=== PATIENT | male | born 2000 | race Caucasian/White ===

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

== ENCOUNTER 2022-03-31 17:57 | Emergency (ER) | payer BC, OTHER ==
[2022-03-31] MEDS ORDERED: Diphtheria,Pertussis(Acell),Tetanus Vaccine 0.5 ML Syringe IM ONE (18:26)
[2022-03-31 19:35] VITALS: BP 125/50; PULSE 92
== END 2022-03-31 19:34 | disposition home or self-care (01) ==
LOC: MW.ED 17:57
DX: S62.357A Nondisplaced fracture of shaft of fifth metacarpal bone, left hand, initial encounter for closed fracture (principal); S62.647A Nondisplaced fracture of proximal phalanx of left little finger, initial encounter for closed fracture; Z72.0 Tobacco use; Z23 Encounter for immunization; V86.52XA Driver of snowmobile injured in nontraffic accident, initial encounter
CPT/HCPCS: 29125; 73110-26-LT; 73110-LT; 73130-26-LT; 73130-LT; 99283

== ENCOUNTER 2023-01-01 20:11 | Emergency (ER) | payer SELFPAY ==
[2023-01-01] MEDS ORDERED: Dexamethasone 10 MG/ML SDV PO ONE (22:20)
[2023-01-02 01:21] VITALS: BP 125/70; PULSE 70
== END 2023-01-01 22:30 | disposition home or self-care (01) ==
LOC: MW.ED 20:11
DX: J02.9 Acute pharyngitis, unspecified (principal); R59.1 Generalized enlarged lymph nodes
CPT/HCPCS: 99283; J8540